=== PATIENT | male | born 1980 | race African-American/Black ===

== ENCOUNTER 2019-02-25 14:41 | Emergency (ER) | payer SELFPAY ==
[~2019-02-25] VITALS: Ht 177.8 cm; Wt 97.5 kg
[2019-02-25 16:20] VITALS: BP 169/112
== END 2019-02-25 16:31 | disposition home or self-care (01) ==
LOC: FSED 14:41
DX: I10 Essential (primary) hypertension (principal)
CPT/HCPCS: 80053; 82553; 84484; 93005; 99283